=== PATIENT | male | born 1990 | race Caucasian/White ===

== ENCOUNTER 2018-04-02 17:06 | Emergency (ER) | payer OTHER | END 2018-04-02 21:32 | disposition other institution (70) | LOC: ED 17:06 | DX: Z02.89 Encounter for other administrative examinations (principal) | CPT/HCPCS: J7030 ==

== ENCOUNTER 2018-04-02 17:06 | Emergency (ER) | payer SELFPAY ==
[~2018-04-02] VITALS: Ht 193 cm; Wt 90.7 kg
[2018-04-02 17:51] VITALS: Ht 193 cm; Wt 90.7 kg
[2018-04-02 18:34] LABS: BASOPHIL % 0.4 % (0-2); PLATELET COUNT 309 x10^3mcL (130-400); RED CELL DISTRIBUTION WIDTH 13.8 % (11.5-14.5)
[2018-04-02 18:46] LABS: CALCIUM 9.5 mg/dL (8.5-10.1); CHLORIDE SERUM 107 mmol/L (98-107); GFR1 > 60 mL/min; GLUCOSE SERUM 89 mg/dL (74-106); POTASSIUM SERUM 3.9 mmol/L (3.5-5.1); SODIUM SERUM 143 mmol/L (136-145)
[2018-04-02 18:48] LABS: ALBUMIN 3.8 g/dL (3.4-5.0); ALKALINE PHOSPHATASE 84 U/L (46-116); ALT/SGPT 33 U/L (16-63); AST/SGOT 28 U/L (15-37)
[2018-04-02 20:52] LABS: microscopic required? YES; urine erythrocyte NEGATIVE (NEGATIVE)
[2018-04-02 21:18] LABS: AMPHETAMINE QUAL UR POSITIVE (NEG <=1000)
[2018-04-02 21:32] VITALS: BP 117/69
== END 2018-04-02 21:32 | disposition other institution (70) ==
LOC: ED 17:06
PROVIDERS: Emergency Medicine
DX: N50.89 Other specified disorders of the male genital organs (principal); R10.30 Lower abdominal pain, unspecified; Z88.8 Allergy status to other drugs, medicaments and biological substances
CPT/HCPCS: J1885; J2270; J2405; J7030